=== PATIENT | female | born 1950 | race Caucasian/White ===

== ENCOUNTER 2024-02-15 12:42 | Emergency (ER) | payer MEDICARE, OTHER, SELFPAY ==
[2024-02-15 12:44] VITALS: BP 184/101
--- NOTE | 2024-02-15 14:03 | ED.GENMED ---
History of Present Illness
General
Chief Complaint: Musculo-Skeletal Complaint
Source: patient
Exam Limitations: none
Time Seen by Provider: 02/15/24 13:17
Nursing documentation reviewed up to this point in time: agreed with
History of Present Illness
History of Present Illness:
pt is a 73 y/o F
h/o HTN
here with R elbow pain after she slipped on wet floor at 1 am this deondrenin royer her way out of the bathroom
she says she landed on her hands and buttocks but felt pop in her R elbow
mild swelling
took aleve last night
no numbness/tingling/weakness
no shoulder pain/wrist pain
no head strike or other injuries
Past History
Past History
ED Past Medical History: HTN; Negative IDDM or NIDDM
ED Past Surgical History: Gynecological
Patient has exhibited threatening behavior?: No
Social History
Tobacco: Non-smoker
Alcohol: None
Drug: None
Personal:
Living: with family
Employment: Employed
Family History
Family History: Other (Noncontributory)
Review of Systems
Review of Systems
Allergies reviewed?: Yes
All Other Systems: Not applicable
Phy Exam
Physical Exam
Physical Exam:
GENERAL: Alert , in no apparent distress
HEAD: NCAT
CARDIAC: Regular rate and rhythm, no edema
LUNGS: Clear breath sounds bilaterally, no acute respiratory distress, no wheezes/rales/rhonchi
ABDOMEN: Soft, without focal tenderness, no r/g, no cvat
NEUROLOGICAL: Alert and oriented, no focal neuro deficits, CN intact, 5/5 strength, sensation intact
SKIN: Warm and dry,
MUSCULOSKELETAL: No edema, well perfused.
PSYCH: Normal and appropriate interaction.
Course
Orders/Labs/Results
Orders:
Orders
02/15/24 12:47
Elbow, Right 3 View [CR Elbow - Right Min 3 Views] Urgent
Comment:
Reason For Exam: right elbow pain fell and felt a pop
Vital Signs
Initial and Last Documented VS:
Initial Vital Signs
Temp Pulse Resp BP Pulse Ox
36.7 C 94 16 184/101 98
02/15/24 12:44 02/15/24 12:44 02/15/24 12:44 02/15/24 12:44 02/15/24 12:44
Last Documented Vital Signs
Temp Pulse Resp BP Pulse Ox
36.7 C 94 16 184/101 98
02/15/24 12:44 02/15/24 12:44 02/15/24 12:44 02/15/24 12:44 02/15/24 12:44
ED Attending Note
-
Portions of this chart may have been created with voice recognition software.� Occasional wrong word or��sound alike� substitutions may have occurred due to the inherent limitations of voice recognition software.
Discharge Plan
Departure
Condition: Fair
Covid-19: Not Applicable
Discharge Problem:
Closed fracture of radial head
Instructions: How to Use a Shoulder Sling, Elbow Fracture, Adult ED
Prescriptions:
No Action
losartan 25 MG tablet
25 mg PO HS
esomeprazole magnesium [Nexium] 20 MG capsule,delayed release(DR/EC)
20 mg PO DAILY
Referrals:
Lion Hager MD [Active] - Follow up in 1 week (orthopedics)
Trice Browne MD [Family Provider] -
Stand Alone Forms: Return to Work
Activity Restrictions/Additional Instructions:
You have a fracture of your radial head of your elbow on the right side. Wear the sling until you see orthopedics. You can remove it just to shower and then reapply it. You could also remove it and gently move your shoulder to avoid frozen
shoulder syndrome. Ice off-and-on your elbow. Tylenol 3 times a day, Aleve once a day. Follow-up with orthopedics this week. Return for any concerns
Interventions
Interventions:
*Risk Screen - Suicide Last Done: 02/15/24 12:44
*General Assessment Last Done: 02/15/24 13:35
*Neglect/Abuse Screening Last Done: 02/15/24 12:44
ED- Fall Risk Assessment Last Done: 02/15/24 13:34
*ED COVID-19 Vaccine History Last Done: 02/15/24 13:35
ED-Musculoskeletal Assessment Last Done: 02/15/24 13:34
Discharge Date and Time
Print Language: AMHARIC
[2024-02-15 14:08] VITALS: BP 154/83
== END 2024-02-15 14:28 | disposition home or self-care (01) ==
LOC: EMR 12:42
PROVIDERS: EMERGENCY PHYSICIAN Emergency Medicine; FAMILY PHYSICIAN Internal Medicine
DX: S52.124A Nondisplaced fracture of head of right radius, initial encounter for closed fracture (principal); W01.0XXA Fall on same level from slipping, tripping and stumbling without subsequent striking against object, initial encounter; I10 Essential (primary) hypertension
CPT/HCPCS: 99283; 73080

== ENCOUNTER → 2024-04-22 14:50 | Outpatient (REF) | payer MEDICARE, OTHER, SELFPAY | LOC: HWWDC 14:50 | PROVIDERS: ATTENDING PHYSICIAN Obstetrics & Gynecology Gynecology; FAMILY PHYSICIAN Internal Medicine | DX: Z12.31 Encounter for screening mammogram for malignant neoplasm of breast (principal) | CPT/HCPCS: 77063; 77067 ==